=== PATIENT | female | born 1975 | race Caucasian/White ===

== ENCOUNTER 2016-08-10 09:07 | Day surgery (SDC) | payer BC ==
[~2016-08-10] VITALS: Ht 160 cm; Wt 68.2 kg
[~2016-08-10 09:07] MED LIST: IBU800 M1 PO; PERCOCET 325 MG1 TA2 PO; PRENATAL
[2016-08-10 10:02] VITALS: BP 113/69; PULSE 78; TEMP 98.3
[2016-08-10 12:32] VITALS: BP 132/70; PULSE 72; TEMP 97.4
[2016-08-10] MEDS ORDERED: IBU800 M1 PO (12:34)
[2016-08-10] MEDS ORDERED: PERCOCET 325 MG1 TA2 PO (12:34)
[2016-08-10 12:45] VITALS: BP 106/64; PULSE 52
[2016-08-10 13:00] VITALS: BP 105/64; PULSE 49
[2016-08-10 13:30] VITALS: BP 104/62; PULSE 52
== END 2016-08-10 14:00 | disposition home or self-care (01) ==
LOC: SDCO 09:07
DX: O02.1 Missed abortion (principal); O71.3 Obstetric laceration of cervix; O09.522 Supervision of elderly multigravida, second trimester; Z3A.14 14 weeks gestation of pregnancy
CPT/HCPCS: J0690; J1885; J2210; J2250; J2405; J2704; J3010

== ENCOUNTER → 2016-10-19 | Outpatient (CLI) | payer BC | LOC: COL.RAD 07:30 | DX: N97.1 Female infertility of tubal origin (principal); N96 Recurrent pregnancy loss ==

== ENCOUNTER 2017-03-19 10:31 | Day surgery (SDC) | payer BC ==
[~2017-03-19] VITALS: Ht 160 cm; Wt 70.0 kg
[2017-03-19 11:16] VITALS: BP 114/60; PULSE 84; TEMP 98
[2017-03-19] MEDS ORDERED: PRENATAL FORMU1 EAC3 PO (11:22)
[2017-03-19] MEDS ORDERED: ASPIRIN 81M81 MG/TA2 PO (11:22)
[2017-03-19] MEDS ORDERED: IBU600 MG PO (13:14)
[2017-03-19] MEDS ORDERED: PERCOCET 325 MG1 TA2 PO (13:14)
[2017-03-19 13:15] VITALS: BP 108/53; PULSE 63
[2017-03-19 13:30] VITALS: BP 103/56; PULSE 68
[2017-03-19 13:45] VITALS: BP 108/60; PULSE 61
[2017-03-19 14:00] VITALS: BP 107/52; PULSE 72
[2017-03-19 14:15] VITALS: BP 102/58; PULSE 74
== END 2017-03-19 14:40 | disposition home or self-care (01) ==
LOC: SDCO 10:31
DX: O02.1 Missed abortion (principal)
CPT/HCPCS: J1885; J2210; J2405; J2704; J3010; J7120

== ENCOUNTER → 2018-05-27 | Outpatient (CLI) | payer BC ==
[~2018-05-27] MED LIST changes: +ASPIRIN 81M81 MG/TA2 PO; +IBU600 MG PO; +PRENATAL FORMU1 EAC3 PO
== END ==
LOC: MC.RAD 11:20
DX: Z12.31 Encounter for screening mammogram for malignant neoplasm of breast (principal); N63.11 Unspecified lump in the right breast, upper outer quadrant

== ENCOUNTER → 2018-05-29 | Outpatient (CLI) | payer BC | LOC: MC.RAD 09:53 | DX: N63.11 Unspecified lump in the right breast, upper outer quadrant (principal) ==

== ENCOUNTER → 2019-07-03 | Outpatient (CLI) | payer BC | LOC: MC.RAD 15:00 | DX: Z12.31 Encounter for screening mammogram for malignant neoplasm of breast (principal); N64.89 Other specified disorders of breast ==

== ENCOUNTER → 2019-07-08 | Outpatient (CLI) | payer BC | LOC: MC.RAD 14:00 | DX: N64.89 Other specified disorders of breast (principal) | CPT/HCPCS: G0279 ==

== ENCOUNTER → 2020-07-07 | Outpatient (CLI) | payer BC | LOC: MC.RAD | DX: Z12.31 Encounter for screening mammogram for malignant neoplasm of breast (principal) ==

== ENCOUNTER → 2021-07-27 | Outpatient (CLI) | payer BC | LOC: MC.RAD 16:58 | DX: Z12.31 Encounter for screening mammogram for malignant neoplasm of breast (principal) ==

== ENCOUNTER → 2023-08-30 | Outpatient (CLI) | payer BC | LOC: MC.RAD 09:12 | DX: Z12.31 Encounter for screening mammogram for malignant neoplasm of breast (principal) ==